=== PATIENT | female | born 2000 | race Native Hawaiian/Other Pacific Islander ===

== ENCOUNTER 2018-03-19 23:27 | Inpatient (IN) | payer MEDICAID ==
[2018-03-20] MEDS ORDERED: POLYCILLIN/NS 2 GM/100 ML 2 GM/100 ML BAG IV ONE (00:12)
[2018-03-20] MEDS ORDERED: ePHEDrine SULFATE IV PRN (00:12)
[2018-03-20] MEDS ORDERED: BRETHINE SUB-Q PRN (00:12)
[2018-03-20] MEDS ORDERED: CELESTONE SOLUSPAN IM ONE (00:23)
[2018-03-20] MEDS ORDERED: LACTATED RINGERS 1,000 ML IV ONE (00:24)
[2018-03-20 00:26] LABS: Hematocrit 36.8 % (30.3-42.9); Hemoglobin 12.3 gm/dl (10.1-14.3); Mean Corpuscular HGB Conc 34 % (30-34); Mean Corpuscular Hemoglobin 30 pg (28-32); Mean Corpuscular Volume 91 fl (79-97); Platelet Count 220 K/mm3 (140-440); Red Blood Count 4.06 M/mm3 (3.65-5.03)
[2018-03-20] MEDS ORDERED: PITOCin/NS 20 UNIT/1000ML DRIP 20 UNITS/1,000 ML BAG IV SCH (01:00)
--- NOTE | 2018-03-20 01:06 | History and Physical Report ---
History of Present Illness Date of examination: 03/20/18 Date of admission: 03/20/2018 Chief complaint: Contractions History of present illness: 17 year old female presents to L&D in labor. Patient brings records with her. LMP 07/15/17. EDC 04/21/18. EGA 35 weeks, 1 day gestation. Patient denies leaking of lfuid or vaginal bleeding. Patient reports active movement. This is patient's first . has been significant for anemia ( on oral iron therapy), elevated 1 hour sugar test with normal 3 hour OGTT. labs are as follows: A+, antibody screen negative, pap smear negative, GC/CT negative, RPR nonreactive, HIV negative, hepatitis B surface antigen negative, rubella immune, elevated one hour sugar test (normal 3 hour OGTT). Past History Past Medical History: no pertinent history Past Surgical History: no surgical history [employer] History: denies: chlamydia, gonorrhea, hepatitis B, hepatitis C, herpes, HIV , syphilis Family/Genetic History: diabetes, cancer Social history: , lives with family. denies: smoking, alcohol abuse, prescription drug abuse - Obstetrical History Expected Date of Delivery: 04/21/18 Actual Gestation: 35 Week(s) 3 Day(s) : 1 Para: 0 Hx # Term Pregnancies: 1 Number of Pregnancies: 0 Spontaneous Abortions: 0 Induced : 0 Medications and Allergies Allergies Allergy/AdvReac Type Severity Reaction Status Date / Time No Known Allergies Allergy Verified 03/20/18 00:34 Active Meds: Active Medications Ephedrine Sulfate (Ephedrine Sulfate) 10 mg IV Q2M PRN PRN Reason: Hypotension Fentanyl (Sublimaze) 100 mcg IV Q2H PRN PRN Reason: Labor Pain Ampicillin Sodium (Polycillin/Ns 2 Gm/100 Ml) 2 gm in 100 mls @ 100 mls/hr IV ONCE ONE; Protocol Stop: 03/20/18 01:11 Lactated Ringer's (Lactated Ringers) 1,000 mls @ 125 mls/hr IV DIRECT MAC Oxytocin/Sodium Chloride (Pitocin/Ns 20 Unit/1000ml Drip) 20 units in 1,000 mls @ 125 mls/hr IV DIRECT MAC Lactated Ringer's (Lactated Ringers) 1,000 mls @ 999 mls/hr IV BOLUS ONE Stop: 03/20/18 01:24 Ampicillin Sodium (Ampicillin/Ns 1 Gm/50 Ml) 1 gm in 50 mls @ 100 mls/hr IV Q4H MAC; Protocol Terbutaline Sulfate (Brethine) 0.25 mg SUB-Q ONCE PRN PRN Reason: Hyperstimulation/Hypertonicity - Vital Signs Vital signs: Vital Signs Temp Pulse Resp BP 98.4 F 95 H 18 120/68 03/19/18 23:41 03/19/18 23:41 03/19/18 23:41 03/19/18 23:41 Temp Pulse Resp BP Pulse Ox 98.4 F 84 18 131/65 94 03/19/18 23:41 03/20/18 00:56 03/19/18 23:41 03/20/18 00:43 03/20/18 00:56 - Physical Exam Breasts: Positive: deferred Cardiovascular: Regular rate, Normal S1, Normal S2 Abdomen: Positive: normal appearance. Negative: soft, distention, tenderness, guarding, rigidity Genitourinary (Female): Positive: normal external genitalia. Negative: perineal /vulvar lesions Uterus: Positive: enlarged. Negative: tender Anus/Rectum: Positive: normal perianal skin Extremities: Positive: normal, tenderness. Negative: edema - Obstetrical FHR: category 1 Uterine Contraction Monitor Mode: External Results Result Diagrams: 03/20/18 00:00 Abnormal lab results 03/20/18 Range/Units 00:00 WBC 13.4 H (4.5-11.0) K/mm3 All other labs normal. Assessment and Plan A: at 35 weeks, 1 day gestation. GBS unknown. labor. P: Admit. IV hydration. IM Celestone. GBS prophylaxis.
[2018-03-20] MEDS: SUBLIMAZE IV PRN ×2 (01:40→04:06)
[2018-03-20] MEDS: LACTATED RINGERS 1,000 ML IV SCH ×4 (01:45→15:34)
[2018-03-20] MEDS ORDERED: ZOFRAN IV ONE (03:08)
[2018-03-20] MEDS: AMPICILLIN/NS 1 GM/50 ML 1 GM/50 ML BAG IV SCH ×3 (05:37→13:47)
[2018-03-20] MEDS: STADOL IV PRN ×3 (05:59→11:34)
[2018-03-20] MEDS ORDERED: LANSINOH TP PRN (17:29)
[2018-03-20] MEDS ORDERED: DULCOLAX PR PRN (17:29)
[2018-03-20] MEDS ORDERED: TYLENOL PO PRN (17:29)
[2018-03-20] MEDS ORDERED: TUCKS PAD TP PRN (17:29)
[2018-03-20] MEDS ORDERED: MILK OF MAGNESIA PO PRN (17:29)
--- NOTE | 2018-03-20 17:38 | Procedure Note ---
OB Delivery Note - Delivery Date of Delivery: 03/20/18 Surgeon: SARAH FAIR Estimated blood loss: other (250 cc) - Vaginal Delivery presentation: vertex Delivery position: OA Intrapartum events: labor-<37 weeks Delivery induction: none Delivery augmentation: rupture of membranes Delivery monitor: external FHT, external uterine Route of delivery: Delivery placenta: spontaneous Delivery cord: nuchal cord, 3 umbilical vessels Episiotomy: none Delivery laceration: none Anesthesia: none Delivery comments: of liveborn male infant weighing 6 lb. 6 oz. over intact perineum with apgars of 8/9. Baby placed immediately on maternal chest skin to skin after . Spontaneous cry and respirations. 3 vessel cord double clamped and cut and baby taken to NICU team at [facility]. Spontaneous delivery of intact placenta and membranes by stapleton mechanism. EBL 250 cc. Fundus firm and midline after delivery of placenta. Pitocin to IV fluids after delivery of placenta. Vaginal sweep negative. Sponge count correct. No lacerations noted. Mother and baby stable. Mother plans to breastfeed.
[2018-03-20] MEDS: MOTRIN PO SCH ×2 (17:45→23:51)
[2018-03-20] MEDS ORDERED: SODIUM CHLORIDE FLUSH SYRINGE 10 ML IV NR (18:00)
[2018-03-21] MEDS: MOTRIN PO SCH ×2 (05:00→16:20)
[2018-03-21] MEDS ORDERED: BOOSTRIX IM ONE (06:00)
[2018-03-21 08:28] LABS: Hematocrit 30.6 % (30.3-42.9); Hemoglobin 10.3 gm/dl (10.1-14.3)
--- NOTE | 2018-03-21 09:00 | Progress Note ---
Assessment and Plan A: day 1 S/P . Anemia. P: Supplement with iron. Plan discharge home tomorrow. Subjective - Subjective Date of service: 03/21/18 Principal diagnosis: day 1 S/P Interval history: day 1 S/P . Doing well. Patient reports small amount of lochia. Patient is voiding without difficulty and ambulating well. She is tolerating a regular diet. Patient denies headache, cough, shortness of breath, chest pain, abdominal pain , leg pain, heavy bleeding, or any other symptoms. Patient is undecided what she wants to use for contraception. Patient is . Patient reports: appetite normal, voiding normally, pain well controlled, flatus , ambulating normally : doing well Objective - Vital Signs Latest vital signs: Vital Signs Temp Pulse Resp BP BP Pulse Ox 03/21/18 04:00 98.0 F 68 18 137/68 03/21/18 00:00 98.0 F 78 18 120/63 03/20/18 17:46 85 115/67 03/20/18 17:39 53 L 124/53 03/20/18 17:37 98.6 F 18 03/20/18 17:16 86 126/56 03/20/18 17:01 93 H 124/60 03/20/18 16:46 92 H 127/61 03/20/18 16:38 88 132/59 03/20/18 15:38 90 123/65 03/20/18 15:26 98.8 F 20 03/20/18 15:05 82 102/54 03/20/18 14:36 90 132/64 03/20/18 14:06 79 130/79 03/20/18 13:35 89 129/75 99 03/20/18 13:05 96 H 139/78 03/20/18 12:35 95 H 127/61 03/20/18 12:05 98 H 116/57 03/20/18 11:36 81 134/76 03/20/18 11:35 97.8 F 81 18 134/76 03/20/18 11:34 18 03/20/18 11:05 97 H 127/65 03/20/18 10:37 89 126/69 03/20/18 10:05 91 H 124/59 03/20/18 09:36 99 H 99/49 03/20/18 09:05 114 H 96/52 Intake and Output 03/20/18 03/21/18 03/21/18 23:59 07:59 15:59 Intake Total 120 120 Output Total 400 400 Balance -280 -280 Intake: Oral 120 120 Output: Urine 400 400 Void 400 400 Other: Total, Intake Amount 120 120 Total, Output Amount 400 400 # Voids Void 1 Estimated Blood Loss 250 - Exam Abdomen: Present: normal appearance, soft. Absent: distention, tenderness, guarding Uterus: Present: normal, firm, fundal height below umbilicus Extremities: Present: normal. Absent: tenderness, edema
[2018-03-21] MEDS: FEOSOL PO SCH (10:35)
[2018-03-22] MEDS: MOTRIN PO SCH ×4 (06:31→18:14)
--- NOTE | 2018-03-22 08:45 | Progress Note ---
Assessment and Plan A" PPD # 2 -stable P: Discharge home today. Subjective - Subjective Date of service: 03/22/18 Principal diagnosis: day 2 S/P Patient reports: appetite normal [place]: doing well Objective - Vital Signs Latest vital signs: Vital Signs Temp Pulse Resp BP Pulse Ox 03/22/18 06:31 18 03/22/18 00:00 98.3 F 75 18 113/59 97 03/21/18 16:56 98.1 F 83 18 110/64 03/21/18 12:00 97.8 F 77 18 109/60 Intake and Output 03/21/18 03/22/18 03/22/18 22:59 06:59 14:59 Output Total 500 300 Balance -500 -300 Output: Urine 500 300 Void 500 300 Other: Total, Output Amount 500 300 - Exam Breasts: Present: deferred Cardiovascular: Present: Regular rate Abdomen: Present: normal appearance Vulva: both: normal Uterus: Present: fundal height below umbilicus Deep Tendon Reflex Grade: Normal +2
--- NOTE | 2018-03-22 08:47 | Discharge Summary ---
Providers - Providers Date of Admission: 03/20/18 01:28 Date of discharge: 03/22/18 Attending physician: CHRISTIANO BOND MD Primary care physician: CHRISTIANO BOND MD Hospitalization Reason for admission: active labor Delivery: Episiotomy: none Laceration: none Other procedures: none [place] baby: male Condition at discharge: Good Disposition: DC-01 TO HOME OR SELFCARE Plan - Provider Discharge Summary Activity: routine, no sex for 6 weeks, no strenuous exercise Diet: routine Instructions: routine Additional instructions: [] Smoking cessation referral if applicable(refer to patient education folder for contact #) [] Refer to [facility] Booklet Call your doctor immediately for: * Fever > 100.5 * Heavy vaginal bleeding ( >1 pad per hour) * Severe persistent headache * Shortness of breath * Reddened, hot, painful area to leg or breast * Drainage or odor from incision. * Keep incision clean and dry at all times and follow doctor's instructions regarding bathing/showering - Follow up plan Follow up: CHRISTIANO BOND MD [Primary Care Provider] - 6 Weeks Forms: [facility] Discharge Summary
[2018-03-22] MEDS: FEOSOL PO SCH (09:19)
[2018-03-22] MEDS ORDERED: M-M-R II VACCINE SUB-Q ONE (18:08)
[2018-03-22 18:13] VITALS: BP 107/65
== END 2018-03-22 18:14 | disposition home or self-care (01) | DRG 775 ==
LOC: TRG 23:27 → LD 03-20 01:28 → OB 03-20 17:53
PROVIDERS: ADMIT Obstetrics & Gynecology; ATTEND Obstetrics & Gynecology
PROC: 10E0XZZ Delivery of Products of Conception, External Approach (ICD-10-PCS; principal; 2018-03-20)
PROC: 3E0234Z Introduction of Serum, Toxoid and Vaccine into Muscle, Percutaneous Approach (ICD-10-PCS; 2018-03-22)
DX: O60.14X0 Preterm labor third trimester with preterm delivery third trimester, not applicable or unspecified (principal); O69.81X0 Labor and delivery complicated by cord around neck, without compression, not applicable or unspecified; D64.9 Anemia, unspecified; O90.81 Anemia of the puerperium; Z3A.35 35 weeks gestation of pregnancy; Z37.0 Single live birth; Z23 Encounter for immunization
CPT/HCPCS: 36415; 85014; 85018; 85027; 86592; 86850; 86900; 86901; 88307; 90471; 90715; 99211; G0463; J0290; J0595; J0702; J2590; J3010; J7120